=== PATIENT | male | born 2005 | race Caucasian/White ===

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

== ENCOUNTER 2023-04-11 23:32 | Emergency (ER) | payer BC ==
[2023-04-11 23:41] VITALS: PULSE 88; BMI 28.0
[2023-04-12] MEDS ORDERED: ONDANSETRON 4 MG/2 ML VIAL IVPUSH ONE (00:07)
[2023-04-12] MEDS ORDERED: LACTATED RINGERS SOLUTION 1000 ML INFUS.BAG IV ONE (00:07)
[2023-04-12] MEDS ORDERED: ACETAMINOPHEN 1000 MG/100 ML BAG IVPB ONE (00:07)
[2023-04-12] MEDS ORDERED: ACETAMINOPHEN INJECTION 100 ML IVPB ONE (00:27)
[2023-04-12] MEDS ORDERED: ONDANSETRON 4 MG/2 ML VIAL ONE (00:28)
[2023-04-12 01:21] LABS: BASO % 0.3 % (0-2.0); EOS % 0.6 % (0-4.5); HEMOGLOBIN 15.5 GM/dL (11.7-16.9); LYMPH % 4.8 % (8-40); MCH 29.2 pg (25.7-33.7); MCHC 32.9 g/dl (32.0-35.9); MEAN CELL VOLUME 88.8 fl (80-96); MONO % 7.9 % (3.8-10.2); NEUT % 86.4 % (42.8-82.8); PLATELET COUNT 252 10^3/uL (134-434); RBC 5.29 M/mm3 (4.00-5.60); RDW 13.2 % (11.9-15.9)
[2023-04-12 02:32] LABS: POTASSIUM 3.5 mmol/L (3.5-5.1)
[2023-04-12 02:35] LABS: BLOOD UREA NITROGEN 16.1 mg/dL (7-18); CALCIUM 9.2 mg/dL (8.5-10.1)
[2023-04-12 02:38] LABS: CREATININE 0.8 mg/dL (0.55-1.3)
[2023-04-12 02:39] LABS: PHOSPHOROUS 1.5 mg/dL (2.5-4.9)
[2023-04-12 03:52] LABS: PH,URINE 6.5 (5.0-8.0); URINE APPEARANCE CLEAR; URINE BILIRUBIN NEGATIVE (NEGATIVE); URINE COLOR DK YELLOW; URINE GLUCOSE (UA) NEGATIVE (NEGATIVE); URINE KETONE 2+ (NEGATIVE); URINE LEUK ESTERASE NEGATIVE (NEGATIVE); URINE NITRITE NEGATIVE (NEGATIVE); URINE PROTEIN NEGATIVE (NEGATIVE)
[2023-04-12 05:56] VITALS: BP 124/68; RESP 16; TEMP 98.8
== END 2023-04-12 05:56 | disposition home or self-care (01) ==
LOC: JER 23:32
PROC: 3E033NZ Introduction of Analgesics, Hypnotics, Sedatives into Peripheral Vein, Percutaneous Approach (ICD-10-PCS; principal; 2023-04-12)
PROC: 3E033GC Introduction of Other Therapeutic Substance into Peripheral Vein, Percutaneous Approach (ICD-10-PCS; 2023-04-12)
DX: R11.2 Nausea with vomiting, unspecified (principal); R10.9 Unspecified abdominal pain
CPT/HCPCS: 36415; 74177-TC; 76705-TC; 80053; 81003; 83690; 83735; 84100; 85025; 87086; 99285-25